=== PATIENT | male | born 1930 | race Caucasian/White ===

== ENCOUNTER 2016-07-07 08:30 | Outpatient (CLI) | payer MEDICARE, OTHER ==
[~2016-07-07] VITALS: Ht 177.8 cm; Wt 76.4 kg
--- NOTE | ~2016-07-07 | OP ---
PATIENT NAME: ROMINA MONTALVO MEDICAL RECORD: [id number] :34 LOCATION:D.CAT ADMISSION DATE: SURGEON: JOSÉ LUIS WRIGHT MD DATE OF OPERATION: 07/07/2016 PROCEDURES: 1. PTCA stent LAD. 2. Left heart catheterization. 3. Selective coronary angiography. 4. Left ventriculogram. INDICATION: Angina and coronary artery disease. PROCEDURE IN DETAIL: After informed consent was obtained and after detailed explanation of risks, benefits as well as alternative therapies, the patient elected to proceed with angiogram and angioplasty. The right radial area was prepped and draped in normal sterile fashion. The right radial artery was cannulated via modified Seldinger technique with placement of 6-Burkinan sheath. All catheters exchanged through this sheath. FINDINGS: The left ventriculogram was performed in standard 30-degree FISHER view, reveals good cardiac wall motion throughout all segments. Overall ejection fraction estimated at 60%. SELECTIVE CORONARY ANGIOGRAPHY: 1. Left main showed no significant angiographic disease. 2. Left anterior descending has a long area of at least 70% stenosis in the proximal vessel. 3. Left circumflex shows moderate irregularities, but no flow-limiting stenosis. 4. Right coronary has moderate irregularities, but no flow-limiting stenosis. PTCA STENT OF THE LAD: The stent used was a 3.0 x 28 mm BioFreedom. The lesion was 25 mm in a 3.0 vessel, RAKESH 3 flow performed after the intervention, 0% residual after the intervention. OVERALL IMPRESSION: Successful percutaneous transluminal coronary angioplasty stent of the left anterior descending going from 70% initial stenosis to 0% residual. TRANSINT:[id number] Voice Confirmation ID: [id number] DOCUMENT ID: [id number] JOSÉ LUIS WRIGHT MD CC: [id number] DICTATION DATE: 07/07/16 1252 STENCILING MACHINE TENDER: 07/07/16 2326 [facility] CLI 07/07/16 [place] [id number] [place] [id number]
--- NOTE | ~2016-07-07 | HEMODYNAMI ---
PATIENT:ROMINA MONTALVO MEDICAL RECORD: [id number] : 34 LOCATION:DFrandyCAT ADMISSION DATE: 07/07/16 Generatedon:07/07/201612:45 Patient name: ROMINA MONTALVO Patient #: [id number] : 1930 Date of study: 07/07/2016 Page: Of Hemodynamic Procedure Report Patient Data Patient Demographics Procedure consent was obtained First Name: ROMINA Gender: Male Last Name: KATIA : 1930 Middle Initial: H Age: 85 year(s) Patient #: [id number] Race: SSN: [id number] Additional ID: [id number] Contact details Address: [address] [place] [address] State: [place] City: [place] Zip code: [address] Past Medical History Allergies Allergen Reaction Date Comments Reported Other allergy 07/07/2016 [facility] Admission Admission Data Admission Date: 07/07/2016 Admission Time: 8:30 Arrival Date: 07/07/2016 Arrival Time: 10:30 Admit Source: Other Insurance Payor: Medicare Height (in.): 70 BSA: 1.95 (m2) Height (cm.): 177.8 BMI: 24.39 (kg/m2) Weight (lbs.): 170 Weight (kg.): 77.11 Lab Results Lab Result Date: 07/07/2016 Lab Result Time: 0:00 Biochemistry Name Units Result Min Max BUN mg/dl 21 --(----)-* 7 18 CK-MB ng/ml 1.5 --(-*--)-- 0 3.6 Creatinine mg/dl 1.1 --(--*-)-- 0.6 1.3 Creatinine l 84 --(-*--)-- 21 215 Kinase Troponin l ng/ml 0.017 --(-*--)-- 0 0.06 CBC Name Units Result Min Max Hemoglobin g/dl 13 -*(----)-- 13.5 17.5 Procedure Procedure Types Cath Procedure Diagnostic Procedure [facility] w/Coronaries PCI Procedure Coronary Stent Initial Miscellaneous Procedures Moderate Sedation up to 15 minutes Procedure Description Procedure Date Procedure Date: 07/07/2016 Procedure Start Time: 12:25 Procedure End Time: 12:38 Procedure Staff Name Function Sandip Zazueta MD Performing Physician Nuzhat Hu RT Scrub Hamzah Aguilar RN Nurse Nelli Sandoval RT Monitor Procedure Data Cath Procedure Fluoroscopy Diagnostic fluoroscopy Total fluoroscopy Time: 3.6 time: 3.6 min min Diagnostic fluoroscopy Total fluoroscopy dose: 268 dose: 268 mGy mGy Contrast Material Contrast Material Type Amount (ml) Isovue 300 88 Entry Location Entry Primary Successful Side Size Upsize Upsize Entry Closure Henderson ccessful Closure Location (Fr) 1 (Fr) 2 (Fr) Remarks Device Remarks Radial Right 6 Fr Mechanical TR artery Short Compression Estimated blood loss: 10 ml Diagnostic catheters Device Type Used For End Catheter Placement Medtronic Dexterity 5Fr Procedure LOYA 4.0 catheter (NO COST SUPPLY) Terumo 5Fr [place] 110cm Procedure catheter Procedure Complications No complications Procedure Medications Medication Administration Route Dosage Oxygen NC 2 l/min Lidocaine 2% added to field 20 Heparin Flush Bag added to field 2 bags (1000units/500ml NS) 0.9% NaCl I.V. 100 ml/hr Radial Cocktail I.A. 1 syringe (Verapomil 2mg/Nitro 400mcg/Heparin 1500units) Versed I.V. 1 mg Fentanyl I.V. 100 mcg Versed I.V. 1 mg Fentanyl I.V. 100 mcg Heparin Bolus I.V. 4000 units Hemodynamics Rest BSA: 1.95 (m2) HGB: 13 (g/dl) O2 Consumption: Estimated: 236.47 (ml/min) O2 Cons umption indexed: Estimated:121.27 (ml/min/m) Heart Rate: 90 (bpm) Snapshots Pre Cath Intra NCS Post Cath Vital Signs Time Heart Resp SPO2 NIBP (mmHg) Rhythm Pain Sedation Rate (ipm) (%) Status Level (bpm) 12:02:23 81 18 100 142/83(114) NSR 0 (11) 10(A) , No pain 12:06:44 76 17 96 119/75(97) NSR 0 (11) 10(A) , No pain 12:10:57 78 17 96 124/74(100) NSR 0 (11) 10(A) , No pain 12:15:13 68 16 96 108/61(86) NSR 0 (11) 10(A) , No pain 12:19:25 67 16 95 100/59(80) NSR 0 (11) 10(A) , No pain 12:23:35 68 17 94 105/53(78) NSR 0 (11) 10(A) , No pain 12:27:47 72 29 97 96/59(74) NSR 0 (11) 9(A) , No pain 12:31:57 74 16 94 96/59(82) NSR 0 (11) 9(A) , No pain 12:36:11 73 19 94 94/50(69) NSR 0 (11) 9(A) , No pain 12:41:02 75 17 96 99/57(78) NSR 0 (11) 10(A) , No pain Medications Time Medication Route Dose Verified Delivered Reason Note s Effectiveness by by 12:05:23 Oxygen NC 2 l/min Sandip Buffie used for Carlita Aguilar RN procedure 12:08:17 Lidocaine 2% added 20ml Sandip Oropeza for local to vial Carlita Zazueta MD anesthetic field 12:08:25 Heparin Flush added 2 bags Sandip Oropeza used for Bag to Carlita Zazueta MD procedure (1000units/500ml field NS) 12:08:36 0.9% NaCl I.V. 100 Sandip Goodson Per physician ml/hr Carlita Aguilar RN 12:25:32 Versed I.V. 1 mg Sandip Goodson for sedation Carlita Aguilar RN 12:25:37 Fentanyl I.V. 100 mcg Sandip Goodson for sedation Carltia Aguilar RN 12:26:59 Radial Cocktail I.A. 1 Sandip Oropeza for (Verapomil syringe Carlita Zazueta MD vasodilation 2mg/Nitro 400mcg/Heparin 1500units) 12:29:19 Versed I.V. 1 mg Sandip Oropeza for sedation Carlita Zazueta MD 12:29:23 Fentanyl I.V. 100 mcg Sandip Oropeza for sedation Carlita Zazueta MD 12:30:42 Heparin Bolus I.V. 4000 Sandip Goodson for veri fied units Carlita Aguilar RN anticoagulation with dr zazueta Procedure Log Time Note 11:38:40 Diagnostic Cath Status : Elective 11:38:58 Hazmah Aguilar RN sent for patient. Start room use. 11:38:59 Time tracking: Regular hours 11:39:03 Plan of Care:Hemodynamics will remain stable., Cardiac rhythm will remain stable., Comfort level will be maintained., Respiratory function will remain adequate., Patient/ family verbilizes understanding of procedure., Procedure tolerated without complication., Recovers from procedure without complications.. 11:39:27 Informed consent obtained and on chart 11:40:55 Admit Source: Other 11:40:57 Arrival Date: 07/07/2016 10:30:00 AM 11:41:09 Insurance Payor : Medicare 11:41:19 Patient Height : 177.8 cm 11:41:28 Patient Weight : 77.11 kg 11:49:46 Patient received from Pre/Post Procedure Room to [facility] 3 Alert and oriented. Tansferred to table in Supine position. 11:49:47 Warm blankets applied, and butch hugger turned on for patient comfort. 11:49:47 Correct patient and procedure confirmed by team. 11:49:48 ECG and BP/O2 sat monitors applied to patient. 12:01:06 Vital chart was started 12:01:07 Baseline sample Acquired. 12:01:12 Rhythm: sinus rhythm 12:01:13 Full Disclosure recording started 12:01:56 H&P Date Dictated: 06/27/2016 Within 30 days and on chart., H&P Addendum completed by physician on day of procedure. (MUST COMPLETE FOR ALL OUTPATIENTS). 12:02:01 Pre-procedure instructions explained to patient. 12:02:04 Family in waiting room. 12:02:05 Patient NPO since Midnight. 12:02:16 Patient allergic to Other allergyPCN 12:02:20 Is the patient allergic to Iodine/contrast media? No. 12:02:22 Is patient on blood thinner?Yes 12:02:26 ACC The patient was administered the following blood thiners within the last 24 hours: ACCAspirin, ACCPlavix 12:02:28 Patient diabetic? No. 12:02:44 Previous problem with sedation/anesthesia? No trouble waking up 12:02:47 Snore? Yes 12:02:48 Sleep apnea? No 12:02:50 Opens mouth fully? Yes 12:02:51 Sticks out tongue? Yes 12:02:58 Patient pain scale 0/10 ?. 12:03:08 IV patent on arrival in left antecubital with 0.9% NaCl at [facility]. 12:05:23 Oxygen 2 l/min NC was administered by Hamzah Aguilar RN; used for procedure; 12:07:20 Lab Result : BUN 21 mg/dl 12::20 Lab Result : Creatinine 1.1 mg/dl 12::20 Lab Result : Creatinine Kinase 84 l 12::20 Lab Result : CK-MB 1.5 ng/ml 12::20 Lab Result : Hemoglobin 13 g/dl 12::20 Lab Result : Troponin l 0.017 ng/ml 12:07:24 Lab results completed and on chart. 12:07:28 Right Radial & Right Groin area was prepped with chlora-prep and draped in sterile fashion 12:07:29 Alarms reviewed by R. N. 12:07:30 Sharps counted by scrub and verified by R.N. 12:07:31 Physician paged 12:07:34 Use device set Radial Dx 12:07:36 Acist Syringe opened to sterile field. 12:07:36 Medline Cath Pack opened to sterile field. 12:07:37 Bag Decanter opened to sterile field. 12:07:37 Terumo 6Fr Slender Glidesheath opened to sterile field. 12:07:38 St Jesse 260cm J .035 wire opened to sterile field. 12:07:38 Acist Hand Control opened to sterile field. 12:07:39 Acist Manifold opened to sterile field. 12:07:39 Tegaderm 4 x 4 opened to sterile field. 12:08:17 Lidocaine 2% 20ml vial added to field was administered by Sandip Zazueta MD; for local anesthetic; 12:08:25 Heparin Flush Bag (1000units/500ml NS) 2 bags added to field was administered by Sandip Zazueta MD; used for procedure; 12:08:36 0.9% NaCl 100 ml/hr I.V. was administered by Hamzah Aguilar RN; Per physician; 12:08:53 Procedure type changed to Cath procedure, Diagnostic procedure, LHC, LHC w/Coronaries, PCI procedure, Coronary Stent Initial, Miscellaneous Procedures, Moderate Sedation up to 15 minutes 12:14:53 Zero performed for pressure channel P1 12::59 Zero performed for pressure channel P1 12:15:18 Physician paged 12:24:48 Physician arrived 12:24:48 --------ALL STOP TIME OUT------ 12:24:49 Final Timeout: patient, procedure, and site verified with staff and physician. All members of the team are in agreement. 12:24:52 Right Radial & Right Groin site verified by team. 12:24:55 Sedation plan: IV Moderate Sedation Versed, Fentanyl 12:25:00 Physical assessment completed. ASA score P 2 - A patient with mild systemic disease as per Sandip Zazueta MD. 12:25:04 Procedure started. 12:25:22 Local anesthetic to right radial artery with Lidocaine 2% by Sandip Zazueta MD.INITIAL ACCESS ONLY 12::32 Versed 1 mg I.V. was administered by Hamzah Aguilar RN; for sedation; 12::33 A 6 Fr Short sheath was inserted into the Right Radial artery 12::37 Fentanyl 100 mcg I.V. was administered by Hamzah Aguilar RN; for sedation; 12::38 J wire advanced. 12::38 A Kenshoerity 5Fr LOYA 4.0 catheter (NO COST SUPPLY) was advanced over the wire and used for Procedure. 12::59 Radial Cocktail (Verapomil 2mg/Nitro 400mcg/Heparin 1500units) 1 syringe I.A. was administered by Sandip Zazueta MD; for vasodilation; 12::59 LV angiography performed. 12:27:21 EF : 60 % 12::33 LV hemodynamics recorded. 12:28:31 Catheter removed. 12::17 A GenJuice 5Fr [place] 110cm catheter was advanced over the wire and used for Procedure. 12::19 Versed 1 mg I.V. was administered by Sandip Zazueta MD; for sedation; 12:29:23 Fentanyl 100 mcg I.V. was administered by Sandip Zazueta MD; for sedation; 12:29:28 LCA angiography performed. 12::58 RCA angiography performed. 12::42 Heparin Bolus 4000 units I.V. was administered by Hamzah Aguilar RN; for anticoagulation; verified with dr zazueta 12:30:59 S[place]ira BasixCompak Inflation Kit opened to sterile field. 12:30:59 Escobar Whisper J 300cm 0.014 guide wire opened to sterile field. 12:31:13 Catheter removed. 12:31:22 ACC PCI Site: mLAD has 70% stenosis. 12:32:04 6 Fr xblad3.5 guide catheter was inserted over the wire 12:32:18 Cordis 6FR XBLAD 3.5 guide catheter opened to sterile field. 12:33:04 Wire advanced across lesion. 12:34:21 Inflation Number: 1 A Biofreedom 3.0 x 28 stent (No Cost Implant) was prepped and advanced across the Mid LAD. The stent was deployed at 13 DAFNE for 0:15 (min:sec). 12:34:46 Terumo TR Band Standard opened to sterile field. 12:34:51 Wire removed. 12:34:51 Guide catheter removed. 12:35:05 Sheath removed intact; hemostasis achieved with Mechanical Compression to the Right Radial artery. 12:35:07 Procedure ended.(Physican Out) 12:37:11 Fluoroscopy time 03.60 minutes. 12:37:18 Fluoroscopy dose: 268 mGy 12:37:18 Flurop Dose total: 268 12:37:23 Contrast amount:Isovue 300 88ml. 12:37:25 Sharps counted by scrub and verified by R.N. 12:37:29 TR band inflated with 10cc of air. 12:37:43 Insertion/operative site no bleeding no hematoma. 12:37:47 Post-op/insertion site Right Radial artery dressed using a 4 x 4 and Tegaderm. 12:37:55 Post Procedure Pulses reassessed and unchanged 12:38:00 Post-procedure physical assessment completed. ASA score P 2 - A patient with mild systemic disease as per Sandip Zazueta MD. 12:38:03 Post procedure rhythm: unchanged. 12:38:06 Estimated blood loss: 10 ml 12:38:07 Post procedure instruction explained to patient.Patient verbalizes understanding. 12:38:16 Procedure and supply charges have been captured, reviewed, submitted and are correct. 12:38:44 Procedure Complication : No complications 12:38:47 Vital chart was stopped 12:38:47 See physician's report for complete and final results. 12:38:49 Report given to Pre/Post Procedure Room. 12:38:52 Patient transfered to Pre/Post Procedure Room with Stretcher. 12:38:54 Procedure ended. 12:38:54 Full Disclosure recording stopped 12:39:03 End room use (Document Last) 12:39:12 ACC-PCI Only Patient was given prescriptions, or instructed by Sandip Zazueta MD to start/continue the following medications upon discharge: Plavix Intervention Summary Intervention Notes Time ActionType Lesion and Equipment Action# Pressure Duration Attributes Used 12:34:21 Place stent Mid LAD Biofreedom 1 13 00:15 3.0 x 28 stent (No Cost Implant) Device Usage Item Name Manufacture Quantity Catalog Hospital Part Current Minimal Lot# / Number Charge Number Stock Stock Serial# Code Acist Acist 1 09054 447641 948468 649740 20 Syringe Medical Systems Inc Medline Cardinal 1 [id number] 968998 65043 121451 5 Cath Pack Health Bag Microtek 1 2002S 149471 56282 968268 5 W[employer] Terumo 6Fr Terumo 1 [id number] 177779 887931 922136 [address] St Jesse 1 076089 476252 997529 128563 30 260cm J .035 wire Acist Hand Acist 1 11482 329131 651609 034412 5 Control Medical Systems Inc Acist Acist 1 63119 574935 270271 058802 5 Manifold Medical Systems Inc Tegaderm 4 3M 1 1626W 532769 374657 681075 5 x 4 Medtronic Medtronic 1 [id number] 567273 812647 5 Dexterity 5Fr LOYA 4.0 catheter (NO COST SUPPLY) Terumo 5Fr Terumo 1 34-2876 146488 605413 802218 5 [place] 110cm catheter Merit Merit 1 [id number] 301929 028182 859384 15 BasixCompak Medical Inflation Kit Escobar Escobar 1 [id number] 662296 263458 975524 5 Whisper J Vascular 300cm 0.014 guide wire Cordis 6FR Cardinal 1 [id number] 115443 874099 239761 10 XBLAD 3.5 Health guide catheter Biofreedom Biosensors 1 [id number] 980974 527948 5 [id number] 3.0 x 28 [place] SA stent (No Cost Implant) Terumo TR Terumo 1 [id number] 029670 408180 356544 40 Band Standard Signature Audit [place] Stage Time Signature Unsigned Intra-Procedure 07/07/2016 Nelli Sandoval 12:45:06 PM RT(R) Signatures Monitor : Nelli Sandoval Signature : RT Date : Time : [place] [id number] [place] [address]
[~2016-07-07 08:30] MED LIST: ASPIRIN325 MG PO; LEVAQUIN750 MG PO; MULTI-DAY VITAM1 TAB PO; PRAVACHOL80 MG PO
[2016-07-07] MEDS ORDERED: LISINOPRIL10 MG PO (09:10)
[2016-07-07] MEDS ORDERED: PLAVIX75 MG PO (09:12)
[2016-07-07] MEDS ORDERED: PRAVACHOL40 MG PO (09:12)
[2016-07-07 09:19] VITALS: BP 150/66; Ht 177.8 cm; Wt 76.4 kg
[2016-07-07 09:31] LABS: BASOPHILS 0.2 % (0-2); EOSINOPHILS 5.6 % (0-7); HEMATOCRIT 39.9 % (42.0-54.0); IMMATURE GRANULOCYTES 0.2 % (0-5); MCH 30.8 pg (26.0-34.0); MCHC 32.6 g/dL (31.0-37.0); MCV 94.5 fL (80.0-100.0); MEAN PLATELET VOLUME 9.4 fL (7.4-10.4); MONOCYTES 15.1 % (2-11); NEUTROPHILS 46.9 % (40-80); PLATELET COUNT 181 10x3/uL (130-400); RBC 4.22 10x6/uL (4.20-6.10); RDW 12.9 % (11.5-14.5); WBC 5.6 10x3/uL (4.8-10.8)
[2016-07-07 09:55] LABS: CALC OSMOLALITY 276 mosm/kg (275-300); CALCIUM 8.9 mg/dL (8.5-10.1); CHLORIDE - SERUM 104 mmol/L (98-107); CKMB 1.5 U/L (0.0-3.6); CREATINE KINASE 84 UL (21-232); CREATININE - SERUM 1.1 mg/dL (0.6-1.3); GLUCOSE 98 mg/dL (74-106); POTASSIUM - SERUM 3.9 mmol/L (3.5-5.1); SODIUM 137 mmol/L (136-145); UREA NITROGEN 21 mg/dL (7-18); eGFR NON AFRICAN AMERICAN 68 mL/min (90-120)
[2016-07-07 09:57] LABS: TROPONIN-I < 0.017 ng/mL (0.000-0.060)
--- NOTE | 2016-07-07 13:15 | NUR ---
TR BAND INTACT, NO BLEEDING FROM SITE
--- NOTE | 2016-07-07 16:00 | NUR ---
TR BAND OFF- NO HEMATOMA OR BLEEDING NOTED
--- NOTE | 2016-07-07 16:20 | NUR ---
IV D'C WITH CATH TIP INTACT, WRITTEN AND VERBAL INSTRUCTIONS GIVEN TO PT AND , QUESTIONS ANSWERED. DENIES FURTHUR NEEDS
== END 2016-07-07 16:30 | disposition home or self-care (01) ==
LOC: D.CATH 08:30
PROVIDERS: Internal Medicine Interventional Cardiology
DX: I20.9 Angina pectoris, unspecified (principal); I10 Essential (primary) hypertension; E78.5 Hyperlipidemia, unspecified; Z00.6 Encounter for examination for normal comparison and control in clinical research program; Z01.812 Encounter for preprocedural laboratory examination
CPT/HCPCS: 93458; C9600

== ENCOUNTER 2016-08-06 00:44 | Emergency (ER) | payer MEDICARE, OTHER ==
[2016-07-07 09:19] VITALS: BMI 24.1
[~2016-08-06 00:44] MED LIST changes: +LISINOPRIL10 MG PO; +PLAVIX75 MG PO; +PRAVACHOL40 MG PO
== END 2016-08-06 01:50 | disposition home or self-care (01) ==
LOC: D.ER 00:44
DX: S50.311A Abrasion of right elbow, initial encounter (principal); X58.XXXA Exposure to other specified factors, initial encounter

== ENCOUNTER → 2019-01-17 09:33 | Outpatient (CLI) | payer MEDICARE, OTHER ==
[2016-07-07 09:19] VITALS: BMI 24.1
--- NOTE | 2019-01-22 11:17 | ST ---
PATIENT:ROMINA MONTALVO MEDICAL RECORD: [id number] SEX: M LOCATION:[facility] ORDER #: ADMISSION DATE: 01/17/19 AGE OF PATIENT: 88 REFERRING PHYSICIAN: INTERPRETING PHYSICIAN: JOSÉ LUIS WRIGHT MD DATE OF SERVICE: 01/17/2019 PROCEDURE: Nuclear stress test. INDICATIONS: Angina, coronary artery disease, hypertension, and shortness of breath. He was exercised on standard Jarad protocol for 5 minutes achieving 85% max target response with 33 mCi of sestamibi injected at peak stress, 11 mCi used previously for rest images. FINDINGS: Gated SPECT reveals preserved ejection fraction at 76% with good wall motion and thickening and brightening throughout all segments. SPECT imaging: Cardiolite was used as myocardial perfusion agent. There is homogeneous uptake throughout all segments at rest and stress with no evidence of inducible ischemia or previous infarction. OVERALL IMPRESSION: 1. This is a normal nuclear stress test with no evidence of inducible ischemia or previous infarction. 2. Gated SPECT reveals a preserved ejection fraction at 76%. In this patient with ongoing symptomatology, the current scan does not suggest the presence of hemodynamically significant coronary artery disease. Evaluate noncardiac etiology of chest pain. TRANSINT:[id number] Voice Confirmation ID: [id number] DOCUMENT ID: [id number] JOSÉ LUIS WRIGHT MD at 1117 CC: ROMINA HANSON MD [id number] DICTATION DATE: 01/20/19 1104 OUTDOOR EDUCATION TEACHER: 01/20/192025 [facility] CLI 01/17/19 [place] [id number] [place] [address]
== END | disposition home or self-care (01) ==
LOC: D.HCCARDIO 09:33
PROVIDERS: ATTEND Internal Medicine Interventional Cardiology
DX: I25.10 Atherosclerotic heart disease of native coronary artery without angina pectoris (principal)

== ENCOUNTER → 2019-07-18 11:12 | Outpatient (CLI) | payer MEDICARE ==
[2016-07-07 09:19] VITALS: BMI 24.1
== END | disposition home or self-care (01) ==
LOC: D.CT 11:12
PROVIDERS: ATTEND Family Medicine
DX: R06.02 Shortness of breath (principal)

== ENCOUNTER → 2019-09-02 11:43 | Outpatient (CLI) | payer MEDICARE ==
[2016-07-07 09:19] VITALS: BMI 24.1
[2019-09-02 12:19] LABS: BASOPHILS 0.1 % (0-2); EOSINOPHILS 3.3 % (0-7); HEMATOCRIT 37.6 % (42.0-54.0); IMMATURE GRANULOCYTES 0.1 % (0-5); LYMPHOCYTES 27.6 % (15-50); MCH 30.2 pg (26.0-34.0); MCHC 31.9 g/dL (31.0-37.0); MCV 94.7 fL (80.0-100.0); MEAN PLATELET VOLUME 8.8 fL (7.4-10.4); MONOCYTES 8.7 % (2-11); NEUTROPHILS 60.2 % (40-80); RBC 3.97 10x6/uL (4.20-6.10); RDW 12.7 % (11.5-14.5); WBC 7.4 10x3/uL (4.8-10.8)
[2019-09-02 12:23] LABS: PLATELET COUNT 223 10x3/uL (130-400)
[2019-09-02 12:49] LABS: ALBUMIN 3.5 g/dL (3.4-5.0); ANION GAP 10.8 mmol/L (8-16); BILIRUBIN - TOTAL 0.45 mg/dL (0.2-1.3); CALCIUM 8.8 mg/dL (8.5-10.1); CARBON DIOXIDE 27.3 mmol/L (21.0-32.0); CREATININE - SERUM 1.1 mg/dL (0.6-1.3); POTASSIUM - SERUM 4.1 mmol/L (3.5-5.1); PROTEIN - SERUM 6.8 g/dL (6.4-8.2)
[2019-09-03 15:11] LABS: ANA REFLEX - DIRECT Negative (Negative)
[2019-09-04 15:12] LABS: ANCA - ANTIMYELOPEROXIDASE <9.0 U/mL (0.0-9.0); ANCA - ANTIPROTEINASE 3 <3.5 U/mL (0.0-3.5); ANCA - ATYPICAL <1:20 titer (Neg:<1:20); ANCA - CYTOPLASMIC <1:20 titer (Neg:<1:20); ANCA - PERINUCLEAR <1:20 titer (Neg:<1:20)
[2019-09-04 18:08] LABS: IMMUNOGLOBULIN E 60 IU/mL (6-495)
== END | disposition home or self-care (01) ==
LOC: D.LAB 11:43
PROVIDERS: ATTEND Internal Medicine Pulmonary Disease
DX: Z11.59 Encounter for screening for other viral diseases (principal)

== ENCOUNTER → 2019-09-05 10:38 | Outpatient (CLI) | payer MEDICARE ==
[2016-07-07 09:19] VITALS: BMI 24.1
== END | disposition home or self-care (01) ==
LOC: D.LAB 10:38 → D.RT 11:00
PROVIDERS: ATTEND Internal Medicine Pulmonary Disease
DX: J30.9 Allergic rhinitis, unspecified (principal); J84.112 Idiopathic pulmonary fibrosis; Z11.59 Encounter for screening for other viral diseases

== ENCOUNTER → 2019-12-03 19:24 | Outpatient (CLI) | payer MEDICARE ==
[2016-07-07 09:19] VITALS: BMI 24.1
[2019-12-03 20:03] LABS: ALBUMIN 3.6 g/dL (3.4-5.0); BILIRUBIN - DIRECT 0.12 mg/dL (0.00-0.30); BILIRUBIN - INDIRECT 0.27 mg/dL (0.00-1.00); BILIRUBIN - TOTAL 0.39 mg/dL (0.2-1.3); PROTEIN - SERUM 6.7 g/dL (6.4-8.2)
== END | disposition home or self-care (01) ==
LOC: D.LABREF 19:24
PROVIDERS: ATTEND Internal Medicine Pulmonary Disease
DX: J84.112 Idiopathic pulmonary fibrosis (principal)

== ENCOUNTER → 2020-05-28 10:26 | Outpatient (CLI) | payer MEDICARE ==
[2016-07-07 09:19] VITALS: BMI 24.1
== END | disposition home or self-care (01) ==
LOC: D.LAB 10:26
PROVIDERS: ATTEND Internal Medicine Pulmonary Disease
DX: J84.112 Idiopathic pulmonary fibrosis (principal); Z11.52 Encounter for screening for COVID-19

== ENCOUNTER → 2020-06-02 09:15 | Outpatient (CLI) | payer MEDICARE ==
[2016-07-07 09:19] VITALS: BMI 24.1
== END | disposition home or self-care (01) ==
LOC: D.RT 04-21 09:00
PROVIDERS: ATTEND Internal Medicine Pulmonary Disease
DX: J84.112 Idiopathic pulmonary fibrosis (principal)